=== PATIENT | male | born 1980 | race Caucasian/White ===

== ENCOUNTER 2017-06-14 08:40 | Inpatient (IN) | payer SELFPAY ==
[~2017-06-14] VITALS: Ht 165.1 cm; Wt 66.5 kg
[2017-06-14] MEDS ORDERED: KETOROLAC 30 MG INJ IV STA (08:55)
[2017-06-14] MEDS ORDERED: ONDANSETRON 4 MG INJ IV STA (08:55)
[2017-06-14] MEDS ORDERED: SOD CHLORIDE 0.9% 1,000 ML IV STA (08:55)
[2017-06-14 09:30] LABS: BASOPHIL # 0.1 10^3/ul (0.0-0.1); BASOPHILS % 0.4 % (0.0-2.0); EOSINOPHILS % 0.1 % (0.0-7.0); HEMATOCRIT 48.5 % (42.0-52.0); HEMOGLOBIN 16.8 g/dl (14.0-18.0); LYMPHOCYTES # 2.4 10^3/ul (0.8-2.9); LYMPHOCYTES % 16.5 % (15.0-51.0); MEAN CORPUSCULAR HEMOGLOBIN 30.4 pg (29.0-33.0); MEAN CORPUSCULAR HGB CONC 34.6 g/dl (32.0-37.0); MEAN CORPUSCULAR VOLUME 87.9 fl (82.0-101.0); MEAN PLATELET VOLUME 10.7 fl (7.4-10.4); MONOCYTE # 0.7 10^3/ul (0.3-0.9); MONOCYTES % 4.8 % (0.0-11.0); NEUTROPHIL # 11.4 10^3/ul (1.6-7.5); NEUTROPHILS % 77.9 % (39.0-77.0); PLATELET COUNT 295 10^3/UL (140-415); RED BLOOD COUNT 5.52 10^6/ul (4.70-6.10); RED CELL DISTRIBUTION WIDTH 13.9 % (11.5-14.5); WHITE BLOOD COUNT 14.7 10^3/ul (4.8-10.8)
[2017-06-14 09:31] LABS: ADD UMIC YES; UR AMORPHOUS CRYSTAL FEW /HPF (NONE SEEN); UR ASCORBIC ACID NEGATIVE (NEGATIVE); UR BILIRUBIN (Dip) NEGATIVE (NEGATIVE); UR BLOOD (Dip) NEGATIVE (NEGATIVE); UR CLARITY CLOUDY (CLEAR); UR COLOR YELLOW (YELLOW); UR GLUCOSE (Dip) NEGATIVE (NEGATIVE); UR KETONES (Dip) TRACE mg/dL (NEGATIVE); UR LEUKOCYTE ESTERASE (Dip) NEGATIVE Leu/ul (NEGATIVE); UR NITRITE (Dip) NEGATIVE (NEGATIVE); UR RBC 1 /HPF (0-5); UR TOTAL PROTEIN (Dip) 1+ mg/dl (NEGATIVE); UR UROBILINOGEN (Dip) NEGATIVE (NEGATIVE)
[2017-06-14 09:57] LABS: ALBUMIN 4.6 g/dl (3.3-4.9); ALBUMIN/GLOBULIN RATIO 1.06; BILIRUBIN,INDIRECT 0.4 mg/dl (0-1.1); BILIRUBIN,TOTAL 0.4 mg/dl (0.2-1.3); CALCIUM 9.7 mg/dl (8.4-10.2); CREATININE 0.81 mg/dl (0.61-1.24); POTASSIUM 4.3 mmol/L (3.5-5.1); TOTAL PROTEIN 8.9 g/dl (6.1-8.1)
--- NOTE | 2017-06-14 09:58 | RADRPT ---
PROCEDURE: Right upper quadrant ultrasound CLINICAL INDICATION: Abdominal pain TECHNIQUE: Multiple real-time images were acquired of the patient's abdomen and right retroperiton eum utilizing a high resolution transducer. COMPARISON: None FINDINGS: The liver is slightly increased in echogenicity and measures 15.65 cm. No focal hepatic masses are seen. The gallbladder is physiologically distended. There is sludge and stones seen within the gal lbladder. There is moderate thickening of the gallbladder wall and trace pericholecystic fluid.. C ommon bile duct is mildly dilated measures 6.9 mm. Midline images demonstrate the pancreas to be normal in echogenicity without obvious inflammatory ch lu. Pancreatic tail is suboptimally seen Survey views of the right kidney demonstrate no evidence of hydronephrosis or renal calculi. The ri ght kidney measures 10.5 cm. IMPRESSION: 1. Cholelithiasis. There is gallbladder wall thickening and trace pericholecystic fluid suggesting acute cholecystitis. 2. Mild dilatation of the common bile duct measuring 6.9 mm. If clinically indicated, MRCP could b e obtained to exclude choledocholithiasis 3. Mild fatty liver RPTAT: HH .Jameel Michaels MD, Date Time Electronically viewed and signed by .Jameel Michaels MD, MD on 06/14/2017 09:58 .W/
--- NOTE | 2017-06-14 10:28 | ERA ---
ER Documentation Chief Complaint Date/Time DATE: 06/14/17 TIME: 10:27 Chief Complaint PT WITH AP, NAUSEA, AND DIARRHEA X 4 DAYS. HPI 36-year-old male complaining of right upper quadrant pain 2 days. Patient has taken Mylanta with no alleviation of symptoms. Patient had similar symptoms one year ago but resolved spontaneously. He has never had gallbladder problems in the past. Denies heavy drinking. Has had normal urination and bowel movement. No history of abdominal surgery. Denies chest pain or shortness of breath. Pain is constant and stabbing in nature. 10 out of 10 pain. Is sexually active in monogamous relationship. No dysuria. Denies medical problems. NKDA. Smokes 1 cigarette a day. Denies surgery. ROS All systems reviewed and are negative except as per history of present illness. Allergies Allergies: Coded Allergies: No Known Allergy (Unverified , 06/14/17) PMhx/Soc Medical and Surgical Hx: pt denies Medical Hx, pt denies Surgical Hx History of Surgery: No Anesthesia Reaction: No Hx Neurological Disorder: No Hx Respiratory Disorders: No Hx Cardiac Disorders: No Hx Psychiatric Problems: No Hx Miscellaneous Medical Probl: No Hx Alcohol Use: Yes (socially) Hx Substance Use: No Hx Tobacco Use: No Smoking Status: Never smoker Physical Exam Vitals Vital Signs Date Time Temp Pulse Resp B/P Pulse Ox O2 Delivery O2 Flow Rate FiO2 06/14/17 08:44 97.8 55 18 186/93 99 Physical Exam GENERAL: The patient is well-appearing, well-nourished, in no acute distress CHEST: Clear to auscultation bilaterally. There are no rales, wheezes or rhonchi. HEART: Regular rate and rhythm. No murmurs, clicks, rubs or gallops. No S3 or S4. ABDOMEN: Tender to palpation right upper quadrant. No distention. No rebound tenderness. No gross organomegaly or masses. Normal bowel sounds heard BACK: No midline or flank tenderness. Result Diagram: 06/14/1790406/14/17904 Results 24 hrs Laboratory Tests Test 06/14/17 09:05 White Blood Count 14.710^3/ul Red Blood Count 5.5210^6/ul Hemoglobin 16.8g/dl Hematocrit 48.5% Mean Corpuscular Volume 87.9fl Mean Corpuscular Hemoglobin 30.4pg Mean Corpuscular Hemoglobin Concent 34.6g/dl Red Cell Distribution Width 13.9% Platelet Count 36142^3/UL Mean Platelet Volume 10.7fl Neutrophils % 77.9% Lymphocytes % 16.5% Monocytes % 4.8% Eosinophils % 0.1% Basophils % 0.4% Nucleated Red Blood Cells % 0.0/100WBC Neutrophils # 11.410^3/ul Lymphocytes # 2.410^3/ul Monocytes # 0.710^3/ul Eosinophils # 0.010^3/ul Basophils # 0.110^3/ul Nucleated Red Blood Cells # 0.010^3/ul Urine Color YELLOW Urine Clarity CLOUDY Urine pH 9.0 Urine Specific [place] 1.020 Urine Ketones TRACEmg/dL Urine Nitrite NEGATIVEmg/dL Urine Bilirubin NEGATIVEmg/dL Urine Urobilinogen NEGATIVEmg/dL Urine Leukocyte Esterase NEGATIVELeu/ul Urine Microscopic RBC 1/HPF Urine Microscopic WBC 3/HPF Urine Amorphous Crystals FEW/HPF Urine Hemoglobin NEGATIVEmg/dL Urine Glucose NEGATIVEmg/dL Urine Total Protein 1+mg/dl Sodium Level 142mmol/L Potassium Level 4.3mmol/L Chloride Level 100mmol/L Carbon Dioxide Level 26mmol/L Anion Gap 20 Blood Urea Nitrogen 18mg/dl Creatinine 0.81mg/dl Glucose Level 133mg/dl Calcium Level 9.7mg/dl Total Bilirubin 0.4mg/dl Direct Bilirubin 0.00mg/dl Indirect Bilirubin 0.4mg/dl Aspartate Amino Transf (AST/SGOT) 54IU/L Alanine Aminotransferase (ALT/SGPT) 86IU/L Alkaline Phosphatase 103IU/L Total Protein 8.9g/dl Albumin 4.6g/dl Globulin 4.30g/dl Albumin/Globulin Ratio 1.06 Lipase 66U/L Current Medications Medications (Trade) Dose Ordered Sig/Joseph Route PRN Reason Start Time Stop Time Status Last Admin Dose Admin Sodium Chloride (NS) 1,000 ml @ 1,000 mls/hr Q1H STAT IV 06/14/17 08:55 06/14/17 09:54 DC 06/14/17 09:12 Ondansetron HCl (Zofran Inj) 4 mg ONCE STAT IV 06/14/17 08:55 06/14/17 08:58 DC 06/14/17 09:11 Ketorolac Tromethamine (Toradol) 30 mg ONCE STAT IV 06/14/17 08:55 06/14/17 08:58 DC 06/14/17 09:11 Procedures/[facility] DIAGNOSTIC IMAGING REPORT Patient: RAQUEL BATEMAN : 1980 Age: 36 Sex: M MR #: [id number] DOS: 06/14/17 0855 Ordering MD: DENNYS GRIFFITH PA-C Location: [facility] Room/Bed: PROCEDURE: Right upper quadrant ultrasound CLINICAL INDICATION: Abdominal pain TECHNIQUE: Multiple real-time images were acquired of the patient's abdomen and right retroperitoneum utilizing a high resolution transducer. COMPARISON: None FINDINGS: The liver is slightly increased in echogenicity and measures 15.65 cm. No focal hepatic masses are seen. The gallbladder is physiologically distended. There is sludge and stones seen within the gallbladder. There is moderate thickening of the gallbladder wall and trace pericholecystic fluid.. Common bile duct is mildly dilated measures 6.9 mm. Midline images demonstrate the pancreas to be normal in echogenicity without obvious inflammatory change. Pancreatic tail is suboptimally seen Survey views of the right kidney demonstrate no evidence of hydronephrosis or renal calculi. The right kidney measures 10.5 cm. IMPRESSION: 1. Cholelithiasis. There is gallbladder wall thickening and trace pericholecystic fluid suggesting acute cholecystitis. 2. Mild dilatation of the common bile duct measuring 6.9 mm. If clinically indicated, MRCP could be obtained to exclude choledocholithiasis 3. Mild fatty liver ER COURSE: 1L Saline given. IV toradol given. MDM: 36-year-old male complaining of right upper quadrant pain 1 day. Patient' s ultrasound results are concerning for choledocholithiasis with cholecystitis. Patient's liver enzymes are within normal limits. Lipase levels are within normal limits. Patient will be admitted for further evaluation and consultation. This case was discussed with Dr. Hough. A low suspicion for cardiac or pulmonary emergency at this time. I have low suspicion for aortic dissection, AAA, nephrolithiasis, appendicitis, or other acute abdominal etiologies. I have low suspicion for other acute abdominal emergencies. Patient is passing bowel movements normally I will suspicion for bowel obstruction. I do not feel there is indication for CT scan at this time. Patient's pain is well controlled while in ED and will be admitted for surgical intervention. Departure Diagnosis: Primary Impression: Choledocholithiasis with acute cholecystitis Condition: Critical AXEL GRIFFITH PA-C Jun 14, 2017 10:28
[2017-06-14] MEDS ORDERED: morphine 4 MG/ML VIAL IV STA (11:19)
[2017-06-14] MEDS ORDERED: ACETAMINOPHEN 325 MG TAB PO PRN ×2 (12:00→14:30)
[2017-06-14] MEDS ORDERED: ONDANSETRON 4 MG INJ IV PRN ×2 (12:00→14:30)
[2017-06-14 13:02] VITALS: Ht 165.1 cm; Wt 66.5 kg
[2017-06-14 13:08] VITALS: BP 167/95; PULSE 53; RESP 14
[2017-06-14 13:49] VITALS: BP 127/80; PULSE 53
[2017-06-14] MEDS ORDERED: HYDROCODONE/APAP (5/325) TAB PO PRN (14:30)
[2017-06-14] MEDS ORDERED: NACL 0.9% 3 ML SYG IV SCH (14:30)
[2017-06-14] MEDS ORDERED: morphine 2 MG INJ IV PRN (14:30)
[2017-06-14] MEDS: 1/2 NS + KCL 20 MEQ 1,000 ML IV SCH (15:23)
[2017-06-14] MEDS: PIPER-TAZO 3.375 GM IV (PMX) 100 ML IVPB SCH ×2 (15:23→22:29)
--- NOTE | 2017-06-14 16:34 | HP ---
Date/Time of Note Date/Time of Note DATE: 06/14/17 TIME: 16:30 Assessment/Plan VTE Prophylaxis VTE Prophylaxis Intervention: ambulation, SCD's Lines/Catheters IV Catheter Type (from [facility]): Saline Lock Urinary Cath still in place: No Assessment/Plan Chief Complaint/Hosp Course 1. Acute cholecystitis with leukocytosis -Surgery has been consulted in the ED -Zosyn IV, pain control 2. Transaminitis possibly secondary to choledocholithiasis MRCP and GI consultation, trend LFTs and check hep panel Prophylaxis: Ambulation Problems: HPI/ROS Admit Date/Time Admit Date/Time Jun 14, 2017 at 11:33 Hx of Present Illness Patient is a 36-year-old male with history of abdominal pain otherwise no significant medical history. Patient presents with severe abdominal pain in the midepigastrium rating to the right that started this morning, it was associated with nausea vomiting. In the ED patient was found to have acute cholecystitis and surgery was contacted. Patient has no other acute complaints this time. ROS Constitutional: improved, no complaints Eyes: no complaints ENT: no complaints Respiratory: no complaints Cardiovascular: no complaints Gastrointestinal: pain Genitourinary: no complaints Musculoskeletal: no complaints Skin: no complaints Neurologic: no complaints Endocrine: no complaints Lymphatic: no complaints Psychological: nl mood/affect, no complaints Immunologic: no complaints PMH/Family/Social Past Medical History Patient has a history of intermittent abdominal pain likely secondary to cholelithiasis Past Surgical History Past Surgical Hx: no surgical history Family History Significant Family History: no pertinent family hx Social History Alcohol Use: occasionally Drug Use: none Exam/Review of Systems Vital Signs Vitals Vital Signs Date Time Temp Pulse Resp B/P Pulse Ox O2 Delivery O2 Flow Rate FiO2 06/14/17 13:49 53 127/80 06/14/17 13:08 97.5 14 96 Room Air Exam Constitutional: alert, oriented Respiratory: clear to auscultation Cardiovascular: regular rate and rhythm Gastrointestinal: soft, tender, No distended Musculoskeletal: nl extremities to inspection Labs Result Diagram: 06/14/17 0905 06/14/17 09 Medications Medications Current Medications Potassium Chloride/Sodium Chloride (1/2 NS + KCl 20 Meq) 1,000 ml @ 100 mls/hr Q10H IV Last administered on 06/14/17t 15:23; Admin Dose 100 MLS/HR; Start at 14:03 Ondansetron HCl (Zofran Inj) 4 mg Q6H PRN IV NAUSEA AND/OR VOMITING; Start at 14:30 Acetaminophen (Tylenol Tab) 650 mg Q6H PRN PO PAIN LEVEL 1-3 OR FEVER; Start at 14:30 Acetaminophen/ Hydrocodone Bitart ([employer] (5/325)) 1 tab Q6H PRN PO MODERATE PAIN LEVEL 4-6; Start 06/14/17 at 14:30 Morphine Sulfate (morphine) 2 mg Q4H PRN IV SEVERE PAIN LEVEL 7-10 Last administered on 06/14/17 14:35; Admin Dose 2 MG; Start 06/14/17 at 14:30 Zolpidem Tartrate (Ambien) 5 mg QHS PRN PO SLEEP; Start 06/14/17 at 21:00 Famotidine 20 mg 20 mg Q12 IV ; Start 06/14/17 at 21:00 Piperacillin Sod/ Tazobactam Sod (Zosyn 3.375gm/ 100 ml (Pmx)) 100 ml @ 200 mls /hr Q8 IVPB Last administered on 06/14/17 15:23; Admin Dose 200 MLS/HR; Start 06/14/17 at 14:30 Procedures Procedures Ultrasound abdomen: 1. Cholelithiasis. There is gallbladder wall thickening and trace pericholecystic fluid suggesting acute cholecystitis. 2. Mild dilatation of the common bile duct measuring 6.9 mm. If clinically indicated, MRCP could be obtained to exclude choledocholithiasis 3. Mild fatty liver FAY PELAYO Jun 14, 2017 16:34
--- NOTE | 2017-06-14 19:45 | HP ---
Date/Time of Note Date/Time of Note DATE: 06/14/17 TIME: 19:43 Assessment/Plan VTE Prophylaxis VTE Prophylaxis Intervention: ambulation Lines/Catheters [facility] Saline Lock Urinary Cath still in place: No Assessment/Plan Assessment/Plan Acute cholecystitis versus biliary colic Discussed proceeding with surgery on this admission versus surgery electively. Patient wishes to wait as has worked concerns Patient seems to be better and will try clear liquid diet tomorrow. If tolerates clear liquids, will DC home If fails to respond to IV antibiotics, may require surgery on this admission HPI/ROS Admit Date/Time Admit Date/Time Jun 14, 2017 at 11:33 Hx of Present Illness The patient is a 36-year-old male who had acute onset of right upper quadrant pain with some nausea today. He has had 2 prior episodes in the past which resolved on their own. However, this episode today was much more severe and he presented to the ER ROS Constitutional: improved Eyes: no complaints ENT: no complaints Respiratory: no complaints Cardiovascular: no complaints Gastrointestinal: pain Genitourinary: no complaints Musculoskeletal: no complaints Skin: no complaints Neurologic: no complaints Endocrine: no complaints Lymphatic: no complaints Psychological: nl mood/affect, no complaints Immunologic: no complaints PMH/Family/Social Past Medical History Medical History: no pertinent history Past Surgical History Past Surgical Hx: no surgical history Family History Significant Family History: no pertinent family hx Social History Alcohol Use: occasionally Drug Use: none Exam/Review of Systems Vital Signs Vitals Vital Signs Date Time Temp Pulse Resp B/P Pulse Ox O2 Delivery O2 Flow Rate FiO2 06/14/17 13:49 53 127/80 06/14/17 13:08 97.5 14 96 Room Air Exam Constitutional: alert, well developed Psych: no complaints Head: normocephalic Eyes: nl conjunctiva ENMT: nl external ears & nose Neck: supple Respiratory: clear to auscultation Gastrointestinal: other (Nondistended, some slight right upper quadrant tenderness), soft Extremities: normal pulses Neurological: RN PATIENT CARE II-XII intact Skin: nl turgor Labs Result Diagram: 06/14/1790406/14/17904 Medications Medications Current Medications Potassium Chloride/Sodium Chloride (1/2 NS + KCl 20 Meq) 1,000 ml @ 100 mls/hr Q10H IV Last administered on 06/14/17 15:23; Admin Dose 100 MLS/HR; Start at 14:03 Ondansetron HCl (Zofran Inj) 4 mg Q6H PRN IV NAUSEA AND/OR VOMITING; Start at 14:30 Acetaminophen (Tylenol Tab) 650 mg Q6H PRN PO PAIN LEVEL 1-3 OR FEVER; Start at 14:30 Acetaminophen/ Hydrocodone Bitart ([place] (5/325)) 1 tab Q6H PRN PO MODERATE PAIN LEVEL 4-6; Start 06/14/17 at 14:30 Morphine Sulfate (morphine) 2 mg Q4H PRN IV SEVERE PAIN LEVEL 7-10 Last administered on 06/14/17 14:35; Admin Dose 2 MG; Start 06/14/17 at 14:30 Zolpidem Tartrate (Ambien) 5 mg QHS PRN PO SLEEP; Start 06/14/17 at 21:00 Famotidine 20 mg 20 mg Q12 IV ; Start 06/14/17 at 21:00 Piperacillin Sod/ Tazobactam Sod (Zosyn 3.375gm/ 100 ml (Pmx)) 100 ml @ 200 mls /hr Q8 IVPB Last administered on 06/14/17 15:23; Admin Dose 200 MLS/HR; Start 06/14/17 at 14:30 Procedures Procedures PROCEDURE: Right upper quadrant ultrasound CLINICAL INDICATION: Abdominal pain TECHNIQUE: Multiple real-time images were acquired of the patient's abdomen and right retroperitoneum utilizing a high resolution transducer. COMPARISON: None FINDINGS: The liver is slightly increased in echogenicity and measures 15.65 cm. No focal hepatic masses are seen. The gallbladder is physiologically distended. There is sludge and stones seen within the gallbladder. There is moderate thickening of the gallbladder wall and trace pericholecystic fluid.. Common bile duct is mildly dilated measures 6.9 mm. Midline images demonstrate the pancreas to be normal in echogenicity without obvious inflammatory change. Pancreatic tail is suboptimally seen Survey views of the right kidney demonstrate no evidence of hydronephrosis or renal calculi. The right kidney measures 10.5 cm. IMPRESSION: 1. Cholelithiasis. There is gallbladder wall thickening and trace pericholecystic fluid suggesting acute cholecystitis. 2. Mild dilatation of the common bile duct measuring 6.9 mm. If clinically indicated, MRCP could be obtained to exclude choledocholithiasis 3. Mild fatty liver LIOR SWENSON MD Jun 14, 2017 19:44
[2017-06-14] MEDS: FAMOTIDINE 20 MG INJ IV SCH (20:10)
[2017-06-14] MEDS ORDERED: ZOLPIDEM 5 MG TAB PO PRN (21:00)
[2017-06-14 21:06] VITALS: BP 132/82; RESP 19
[2017-06-15] MEDS: 1/2 NS + KCL 20 MEQ 1,000 ML IV SCH ×2 (00:03→05:09)
[2017-06-15 03:25] VITALS: BP 104/59; RESP 18
[2017-06-15] MEDS: PIPER-TAZO 3.375 GM IV (PMX) 100 ML IVPB SCH (05:09)
[2017-06-15 05:49] LABS: HAAIG REFLEX REFLEX FILED
[2017-06-15 06:11] LABS: BASOPHIL # 0.1 10^3/ul (0.0-0.1); BASOPHILS % 0.6 % (0.0-2.0); EOSINOPHILS # 0.2 10^3/ul (0.0-0.5); HEMATOCRIT 48.4 % (42.0-52.0); HEMOGLOBIN 16.1 g/dl (14.0-18.0); LYMPHOCYTES # 3.7 10^3/ul (0.8-2.9); LYMPHOCYTES % 35.5 % (15.0-51.0); MEAN CORPUSCULAR HEMOGLOBIN 29.9 pg (29.0-33.0); MEAN CORPUSCULAR HGB CONC 33.3 g/dl (32.0-37.0); MEAN CORPUSCULAR VOLUME 89.8 fl (82.0-101.0); MEAN PLATELET VOLUME 9.7 fl (7.4-10.4); MONOCYTE # 0.8 10^3/ul (0.3-0.9); MONOCYTES % 8.1 % (0.0-11.0); NEUTROPHILS % 53.4 % (39.0-77.0); PLATELET COUNT 305 10^3/UL (140-415); RED BLOOD COUNT 5.39 10^6/ul (4.70-6.10); RED CELL DISTRIBUTION WIDTH 14.3 % (11.5-14.5); WHITE BLOOD COUNT 10.4 10^3/ul (4.8-10.8)
[2017-06-15 06:28] LABS: ALBUMIN 4.2 g/dl (3.3-4.9); ALBUMIN/GLOBULIN RATIO 1.16; BILIRUBIN,INDIRECT 0.6 mg/dl (0-1.1); BILIRUBIN,TOTAL 0.6 mg/dl (0.2-1.3); CALCIUM 9.3 mg/dl (8.4-10.2); MAGNESIUM 2.6 mg/dl (1.7-2.5); PHOSPHORUS 4.2 mg/dl (2.5-4.9); POTASSIUM 4.7 mmol/L (3.5-5.1); TOTAL PROTEIN 7.8 g/dl (6.1-8.1)
[2017-06-15 07:15] LABS: HEPATITIS B CORE ANTIBODY NEGATIVE (NEGATIVE)
--- NOTE | 2017-06-15 07:24 | RADRPT ---
PROCEDURE: MRCP without contrast. CLINICAL INDICATION: Right upper quadrant abdominal pain. TECHNIQUE: Routine MRCP was obtained without the administration of intravenous contrast. COMPARISON: Ultrasound, 06/14/2017. FINDINGS: There are multiple gallstones with diffuse gallbladder wall thickening and pericholecystic inflammat ion. No intra- or extra-hepatic biliary dilatation is identified. There is no filling defect or ch oledocholithiasis. There is no biliary stricture. The pancreatic duct is within normal limits. There is no peripancreatic inflammation. IMPRESSION: Findings compatible with choledocholithiasis. No biliary dilatation, choledocholithiasis, or biliary obstruction. RPTAT: EE .Kalpesh Gallego MD, MD Date Time Electronically viewed and signed by .Kalpesh Gallego MD, on 06/15/2017 07:29 .C/
[2017-06-15 08:00] VITALS: BP 124/78; RESP 20
[2017-06-15] MEDS: FAMOTIDINE 20 MG INJ IV SCH (09:12)
[2017-06-15] MEDS ORDERED: CIPR500T4 PO (11:25)
[2017-06-15] MEDS ORDERED: METR500T14 PO (11:25)
--- NOTE | 2017-06-15 11:31 | PDOCDIS ---
Discharge Instructions CONDITION Patient Condition: Good HOME CARE INSTRUCTIONS: Diet Instructions: Regular ACTIVITY: Activity Restrictions: No Restrictions FOLLOW UP/APPOINTMENTS Follow-up Plan F/U WITH A PCP IN 1-2 WEEKS FAY PELAYO Jun 15, 2017 11:30
--- NOTE | 2017-06-15 16:05 | DS ---
Date/Time of Note Date/Time of Note DATE: 06/15/17 TIME: 16:01 Discharge Summary Admission/Discharge Info Admit Date/Time Jun 14, 2017 at 11:33 Discharge Date/Time Jun 15, 2017 at 14:10 Discharge Diagnosis 1. Acute cholecystitis with leukocytosis-improved IV antibiotics -Patient decided against surgery, surgical recommendation is for DC with p.o. antibiotics 2. Transaminitis-resolving MRCP shows no choledocholithiasis and hepatitis panel negative Hospital Course Patient is a 36-year-old male with no significant medical history, patient does have history of intermittent abdominal pain. Patient presented once again with abdominal pain was worse than usual. Abdominal ultrasound suggested cholecystitis and patient was seen by surgery. Patient did not want to proceed with surgery and wanted to treat the infection with antibiotics. Patient did receive IV antibiotics in-house and leukocytosis did resolve. Patient did have some elevation of LFTs which trended down and MRCP showed no evidence of choledocholithiasis and hepatitis panel was negative. Patient was felt to be stable DC with p.o. antibiotics, on the day of discharge patient denied any further abdominal pain he had no other acute complaints, his vitals labs physical exam are stable and his questions are answered. Home Meds Active Scripts Ciprofloxacin Hcl* (Ciprofloxacin Hcl*) 500 Mg Tablet, 500 MG PO BID for 7 Days , #14 TAB Prov:FAY PELAYO 06/15/17 Metronidazole* (Metronidazole*) 500 Mg Tablet, 500 MG PO TID for 7 Days, TAB Prov:FAY PELAYO 06/15/17 Follow-up Plan Follow-up PCP in 1-2 weeks, follow-up with surgery if symptoms worsen Primary Care Provider Care Physician No Primary Time spent on discharge: > 30 minutes FAY PELAYO Jun 15, 2017 16:05
== END 2017-06-15 14:10 | disposition home or self-care (01) | DRG 446 ==
LOC: FTE 08:40 → PP2 11:33
PROVIDERS: ADMIT Internal Medicine; ATTEND Internal Medicine
DX: K81.0 Acute cholecystitis (principal); K82.8 Other specified diseases of gallbladder; R74.0 Nonspecific elevation of levels of transaminase and lactic acid dehydrogenase [LDH]
CPT/HCPCS: 74181; 76705; 80053; 81001; 83036; 83690; 83735; 84100; 85025; 86704; 86709; 86803; 87340; J1885; J2270; J2405; J2543; J3480; J7030